=== PATIENT | male | born 1960 ===

== ENCOUNTER 2016-11-22 16:28 | Inpatient (IN) | payer MEDICAID ==
[~2016-11-22] VITALS: Ht 167.6 cm; Wt 79.3 kg
--- NOTE | ~2016-11-22 | ECH ---
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 The estimated left ventricular ejection fraction is 25-30%. The left ventricle is severely dilated . Mild concentric left ventricular hypertrophy. Diastolic assessment reveals Grade I diastolic dysfunction. Mild-moderate mitral regurgitation by color Doppler. There is trivial aortic regurgitation by color Doppler. The ascending aorta appears mildly dilated. The maximum diameter measures 3.6 cm. Procedure Type of Study TTE procedure:Echo Complete SF. Procedure Date Date: 11/23/2016 Start: 02:53 PM Technical Quality: Good visualization Indications:CVA and Hypertension. Additional Indications:Meth abuse Appropriate Use Criteria: 9 Height: 66 inches Weight: 174 pounds BSA: 1.89 m Rhythm: Sinus tachycardia HR: 104 bpm BP: 154/91 mmHg M-Mode/2D Measurements LV Diastolic Dimension: 7.1 cm LV Systolic Dimension: 7.28 cm LV Septum Diastolic: 1.17 cm LV PW Diastolic: 1.18 cm AO Root Dimension: 3.29 cm Cardiac Output: 5.83 l/min LA Dimension: 4.36 cm Cardiac Index: 3.08 l/min*m RV Diastolic Dimension: 3.37 cm LA volume index: 30 ml/m LVOT: 2.55 cm LVOT VTI: 10.99 cm RV Base: 2.6 cm LV Stroke volume: 56.1 ml RV Mid: 1.3 cm LV Stroke volume index: 29.68 ml/m TAPSE: 1.7 cm TDI-S': 15 cm/s Doppler Measurements AV Peak Velocity: 1.2 m/s MV Peak E-Wave: 0.5 m/s AV Peak Gradient: 5.76 mmHg MV Peak A-Wave: 1.02 m/s AV Mean Gradient: 3.97 mmHg MV E/A Ratio: 0.49 LVOT Peak Velocity: 0.74 m/s MV P1/2t: 27 msec AV Area (Continuity):3.17 cm MV Deceleration Time: 93.2 msec MV Area (PHT): 8.14 cm PV Peak Velocity: 0.87 m/s E' Septal Velocity: 0.04 m/s PV Peak Gradient: 3.05 mmHg E' Lateral Velocity: 0.06 m/s A' Septal Velocity: 0.1 m/s A' Lateral Velocity: 0.11 m/s RA Area: 11.22 cm Findings Left Ventricle The left ventricle is severely dilated . Mild concentric left ventricular hypertrophy. Diastolic assessment reveals Grade I diastolic dysfunction. Right Ventricle Normal right ventricle structure and function. Left Atrium Normal left atrial size. Right Atrium Normal right atrial size. Mitral Valve Normal mitral valve structure and function. Mild-moderate mitral regurgitation by color Doppler. Aortic Valve Normal aortic valve structure and function. There is trivial aortic regurgitation by color Doppler. Tricuspid Valve Normal tricuspid valve structure and function. Trivial tricuspid regurgitation by color Doppler. Insufficient jet to calculate pulmonary pressures. Pulmonic Valve Normal pulmonic valve structure and function. Trivial pulmonic valve regurgitation by color Doppler. Pericardial Effusion No evidence of pericardial effusion. Miscellaneous The ascending aorta appears mildly dilated. The maximum diameter measures 3.6 cm. Pleural Effusion No evidence of pleural effusion. Contractility Score LV regional wall motion:(0-Non visualized 1-Normal 2-Hypokinesis 3-Akinesis 4-Dyskinesis 5-Aneurysm) Signature
[~2016-11-22 16:28] MED LIST: AUGMENTIN875 MG PO
--- NOTE | 2016-11-23 18:07 | HP ---
ADMIT: 11/22/2016 RM/LOC: 424 [facility] MR#: [id number] 2620 [facility] [address] [place], [place] [address] Edward HONG [address] [facility] [address] History and Physical SEX: M AGE: 56 : 1960 DATE OF SERVICE: CHIEF COMPLAINT: Right facial weakness and insomnia. HISTORY OF PRESENT ILLNESS: Diaz is a very nice 56-year-old man who is originally from [facility] and had been living in [place] but recently moved to [facility]. While in [facility], it sounds that he had a stroke in August 2016. At that time, he did have a right facial weakness and right upper and lower extremity weakness. He was placed on aspirin and atorvastatin as well as Zoloft. He recently came back to [place] and has been back here for a few days. He stopped his medications as he ran out and 2 days after stopping his medications, he did feel some right facial weakness, still like he was going to have another stroke. He waited a couple of days, and then he decided to come in the ER after this. He was evaluated in the ER by Dr. Penn, received appropriate evaluation with basic laboratories of anticoagulation workup, basic chemistries as well as head CT and also UA and drug screen. Came to find out the patient ran out of his medications and therefore, it appears that he had recurrent stroke. I evaluated him at his bedside and T1 with the use of interpretive services via phone, he endorses the above history. He has no chest pain. No shortness of breath. No nausea, no vomiting, no abdominal pain, no leg pain. He states that he has a headache as well as he does have some right facial weakness. His upper and lower extremities actually pretty reasonably strong and states this is chronically a little weak after his initial stroke in August of 2016. He does smoke daily. He does not drink. He does not do drugs. He is not and he does have children. He was back in town to take care some issues, and plan to go back to [place]. He does feel better with acute interventions in the ER. PAST MEDICAL HISTORY: 1. Cerebrovascular disease with stroke in 2015. 2. Chronic right hemiparesis, mild. 3. Hyperlipidemia. 4. Depression. MEDICATIONS: 1. Atorvastatin. 2. Aspirin. 3. Zoloft. However, he has been off them for several days now. Symptoms were onset 2 days prior to his presentation to the ER. ALLERGIES: NO KNOWN MEDICAL ALLERGIES. FAMILY HISTORY: Mother and father both with diabetes. They were quite old when they but they from complications of diabetes. He has several brothers and sisters. One brother does have epilepsy and some do have ADMIT: 11/22/2016 RM/LOC: 424 [facility] MR#: [id number] [address] [phone] Edward HONG [address] [place] [address] History and Physical SEX: M AGE: 56 : 1960 hypertension. He does have some children who are healthy. SOCIAL HISTORY: He does live in [facility] now. He does not drink. He does not do drugs. He does smoke daily. He is not and lives by himself. REVIEW OF SYSTEMS: Complete review of systems reviewed per HPI. PHYSICAL EXAMINATION: VITAL SIGNS: Blood pressure in the emergency room was 168/70, pulse was 70, respiratory rate is 16. He was on room air and he was afebrile. GENERAL: He was alert and oriented x3. No acute distress. HEENT: Normocephalic, atraumatic. Extraocular muscles intact. Pupils equal, round, responsive to light. No nasal discharge. He does have intact cranial nerves. However, he does have some mild right facial weakness. NECK: Supple. HEART: Regular. LUNGS: Distant but clear. ABDOMEN: Soft and nontender. EXTREMITIES: No clubbing, cyanosis, edema. NEURO: He has no focal neurological deficits outside of very mild weakness of his right upper and lower extremity, compared to his left which was chronic and he does have some mild right facial droop, which he reports as previously with his 1st stroke but had resolved and has now returned. He does have no difficulty with alternating movements and his remaining cranial nerves were intact. LABORATORY AND X-RAY DATA: White blood cells are 10.6, hemoglobin is 13.1, platelets are 198. INR is 1.09. Sodium is 140, potassium 4.2, chloride is 107, bicarb is 22, BUN is 13, glucose 148, creatinine is 1.3, calcium is 8.4. ProBNP is 4212. Head CT without contrast does show a left-sided nonhemorrhagic stroke in the left parietal lobe which does appear to be old per Radiology at over read. There are no masses and the stroke appears to be more than 24 hours old. Symptoms were actually onset 2 days ago. UA is negative and negative for infection, has mild blood and urine drug screen is negative. ASSESSMENT AND PLAN: 1. Subacute stroke in the left parietal lobe. 2. Hypertension. 3. Hyperlipidemia. 4. Hyperglycemia. 5. Tobacco abuse. 6. Known cerebrovascular disease. 7. Chronic right hemiparesis, mild. 8. Right facial droop, new. 9. Medical nonadherence. It appears that the patient has had an acute stroke with his clinical ADMIT: 11/22/2016 RM/LOC: 424 [facility] MR#: [id number] [address] [phone] Edward HONG [facility] [place] [address] History and Physical SEX: M AGE: 56 : 1960 presentation as well as imaging. This is not actually a failure of aspirin and his medical management as he has not been taking his medications. Therefore, I will restart him on a full-dose aspirin. I will restart his atorvastatin. I will get some fasting lipids as well as hemoglobin A1c in the morning. We will go ahead and initiate him on heparin and DVT prophylaxis. I will request carotid Dopplers, bilateral venous Dopplers, transthoracic echo with bubble study as well as MRI and MRA of his brain. We will have Speech Therapy see the patient as well, and advance his diet per the recommendations. We will go ahead and just put him on some gentle IV fluids as he will be n.p.o. until he is cleared by speech. The patient does request to be a full code and I do educate him that he needs to take his medications. Based on these findings, he does have relatively mild clinical picture; however, we will monitor this for any signs of progression and we will have repeat imaging with an MRI in the morning. Unclear if we do have neurological services at the hospital at this time. We will go ahead and consult them and see if we do have Neurology consultation. If he does have any difficulties and requires Neurology and they are not available, then we will have to transfer this patient onto a different institution with available neurological services. I discussed this plan with the patient, expressed understanding and agreement, had no further questions. Dominic Munson MD/ felix JOB #: [id number] CC: Wai Osman, Attending Physician Wai Osman, Family Physician
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
--- NOTE | 2016-11-28 08:15 | ER ---
ADMIT: 11/22/2016 RM/LOC: ER [facility] MR#: [id number] [address] [facility] [address] [place] [phone] Edward HONG [address] [facility] [place] [address] Emergency Room Report SEX: M AGE: 56 : 1960 DATE: 11/22/2016 HISTORY OF PRESENT ILLNESS: A 56-year-old gentleman brought in by someone he is staying with. 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 When she came home from work, she has noticed facial droop today. The patient says, however, he has had this problem starting approximately 2 days ago, but did one. Two days ago, he had a headache, but he subsequently brought in today by the lady he is staying with while he is down in [place]. He does have a past history of CVA in the past, hypertension, hypercholesterolemia, and he has been without his medicines for the past several days, and he forgot to bring in with him when he left the [facility]. PHYSICAL EXAMINATION: GENERAL: A 56-year-old gentleman, in no acute distress. HEENT: Normocephalic and atraumatic. NEUROLOGIC: Cranial nerves, there is a drooping of right side of his mouth. Cerebellar is negative. Motor is symmetric and 5/5 in both the upper and lower extremities. LUNGS: Clear to auscultation. CARDIOVASCULAR: Regular rate and rhythm. No murmurs, rubs, or gallops. ABDOMEN: Soft, nontender. Stroke scale was 2. CT scan showed an old ischemic area in the precentral gyrus. No acute findings were noted; however, the next most recent scan per Dr. Boland was in 2014. Chest x-ray is unremarkable. EKG was unremarkable. His labs showed white count of 10.6. His electrolytes; glucose 148, BNP is 4212, and INR is 1.09, and he is being admitted with a diagnosis of CVA. Jude Narayan MD/ felix JOB #: [id number] CC: Jude Narayan MD, Attending Physician Wai Osman MD, Family Physician
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
== END 2016-11-26 18:17 | disposition home or self-care (01) | DRG 65 ==
LOC: ER 16:28 → 4PCU 17:54
PROVIDERS: ADMIT Internal Medicine
PROC: 3E0234Z Introduction of Serum, Toxoid and Vaccine into Muscle, Percutaneous Approach (ICD-10-PCS; principal; 2016-11-26)
DX: I63.9 Cerebral infarction, unspecified (principal); I69.351 Hemiplegia and hemiparesis following cerebral infarction affecting right dominant side; I42.9 Cardiomyopathy, unspecified; R45.851 Suicidal ideations; R29.810 Facial weakness; E78.00 Pure hypercholesterolemia, unspecified; Z23 Encounter for immunization; G47.00 Insomnia, unspecified; F15.90 Other stimulant use, unspecified, uncomplicated; I34.0 Nonrheumatic mitral (valve) insufficiency; R73.03 Prediabetes; K57.90 Diverticulosis of intestine, part unspecified, without perforation or abscess without bleeding; I10 Essential (primary) hypertension; E78.5 Hyperlipidemia, unspecified; F32.9 Major depressive disorder, single episode, unspecified; Z79.82 Long term (current) use of aspirin; Z91.14 Patient's other noncompliance with medication regimen; T45.526A Underdosing of antithrombotic drugs, initial encounter; Z91.128 Patient's intentional underdosing of medication regimen for other reason; Z87.891 Personal history of nicotine dependence; Z82.49 Family history of ischemic heart disease and other diseases of the circulatory system